=== PATIENT | male | born 1950 | race Caucasian/White ===

== ENCOUNTER 2017-09-24 21:09 | Inpatient (IN) | payer MEDICARE, OTHER ==
[2017-09-24 21:31] LABS: Bicarbonate (HCO3v) 26.7 mmol/L (1.0-85.0); CO2 Tension (PvCO2) 45.3 mmHg (41.0-51.0); Calcium, Ionized 1.15 mmol/L (1.12-1.32); Hemoglobin - Calc 13.9 g/dL (12.0-18.0); Lactate 1.06 mmol/L (0.50-2.20); Potassium 3.9 mmol/L (3.4-4.7); T. Carbon Dioxide 28.1 mmol/L (1.0-85.0); pH (Venous) 7.378 (7.35-7.45); vO2 Saturation-calc 45.8 % (94-98)
[2017-09-24 21:36] LABS: #Eosinphils 0.1 thou/uL (0.0-0.7); #Lymphocytes 3.1 thou/uL (1.20-3.40); #Monocytes 0.7 thou/uL (0.11-0.59); #Neutrophils 4.1 thou/uL (1.40-6.50); %Basophils 0.5 % (0.0-1.0); %Eosinophils 1.6 % (0.0-10.0); %Lymphocytes 38.3 % (21.0-51.0); %Monocytes 8.4 % (0.0-10.0); %Neutrophils 51.2 % (42.0-75.0); Mean Corpuscular HGB CONC 34.4 g/dL (32.0-36.0); Mean Corpuscular Hemoglobin 33.2 pg (27.0-31.0); Mean Corpuscular Volume 96.5 fl (80.0-94.0); Mean Platelet Volume 6.8 fL (7.4-10.4); Platelet Count 147 thou/uL (130-400); RBC Distribution Width 11.6 % (11.5-14.5); Red Blood Cell (RBC) Count 4.23 mill/uL (4.70-6.10); White Blood Cell (WBC) Count 7.9 thou/uL (4.8-10.8)
[2017-09-24] MEDS ORDERED: Atropine Sulfate 1 mg/10 ml Syringe ONE (21:36)
[2017-09-24 21:40] LABS: INR-International Normal Ratio 1.1; PTT 33.3 SEC (22.9-36.1); Prothrombin Time 13.9 SEC (12.0-14.7)
[2017-09-24 21:47] LABS: ALT (SGPT) 13 U/L (8-55); AST (SGOT) 17 U/L (5-34); Albumin 4.1 g/dL (3.4-4.8); Alkaline Phosphatase 104 U/L (40-150); Anion Gap 10 mmol/L (10-20); BUN (Urea Nitrogen) 19 mg/dL (8.4-25.7); Bilirubin, Total 0.8 mg/dL (0.2-1.2); Calc. Creatinine Clearance 0 mL/min (70-130); Calcium 9.4 mg/dL (7.8-10.44); Carbon Dioxide 27 mmol/L (23-31); Chloride 103 mmol/L (98-107); Estimated GFR-MDRD 53; Globulin 3.1 g/dL (2.4-3.5); Glucose 136 mg/dL (80-115); Lipase 28 U/L (8-78); Potassium 3.9 mmol/L (3.5-5.1); Protein, Total 7.2 g/dL (5.8-8.1); Sodium 136 mmol/L (136-145)
[2017-09-24 21:51] LABS: CKMB 1.8 ng/mL (0-6.6); Troponin I 0.265 ng/mL (< 0.028)
[2017-09-24] MEDS ORDERED: Nitroglycerin 100MG/250ML BOT 250 ML ONE (22:05)
--- NOTE | 2017-09-24 22:24 | RAD ---
PORTABLE SEMIUPRIGHT CHEST ONE VIEW: HISTORY: A 67-year-old male with a history of chest pain. FINDINGS: Monitor leads overly the chest. Heart size is within normal limits. Lungs are clear. No confluent pneumonia or overt edema. Stable appearance from 02/08/2011. IMPRESSION: No acute intracranial process. No mass or bleed. POS: [facility]
[2017-09-24] MEDS ORDERED: Fentanyl 250 MCG/5 ML VIAL ONE (23:04)
[2017-09-24] MEDS ORDERED: Heparin 10,000 UNITS/1 ML VIAL ONE (23:04)
[2017-09-25] MEDS ORDERED: Acetaminophen/Codeine 30-300mg Tablet PO PRN (00:01)
[2017-09-25] MEDS ORDERED: Milk Of Magnesia 30 ML UDCUP PO PRN (00:01)
[2017-09-25] MEDS ORDERED: cloNIDine 0.1 MG TAB PO PRN (00:01)
[2017-09-25] MEDS ORDERED: traMADol HCl 50 MG TAB PO PRN (00:01)
[2017-09-25] MEDS ORDERED: Heparin 10,000 UNITS/ 10 ML VIAL ONE (00:15)
[2017-09-25] MEDS ORDERED: TICAGRELOR 90 MG TABLET PO SCH ×3 (00:15→18:00)
[2017-09-25] MEDS: Sodium Chloride 0.9% 1,000 ML IV SCH ×2 (00:44→17:52)
[2017-09-25 00:51] LABS: Troponin I 0.952 ng/mL (< 0.028)
[2017-09-25] MEDS ORDERED: Insulin Regular 300 UNITS/3 ML VIAL SC PRN (01:02)
[2017-09-25] MEDS ORDERED: Dextrose 5% in Water 1,000 ML IV PRN (01:02)
[2017-09-25] MEDS ORDERED: Dextrose 50% Abboject 50 ML SYRINGE IVP PRN (01:02)
[2017-09-25 07:13] LABS: Troponin I 7.274 ng/mL (< 0.028)
--- NOTE | 2017-09-25 07:54 | HP ---
REASON FOR ADMISSION: Acute myocardial infarction, hypotension, bradycardia. HISTORY OF PRESENT ILLNESS: Mr. Cárdenas is a 67-year-old gentleman. He presented to the emergency room complaining of chest pain and the pain was initially in his back and began to radiate anteriorly to the front part of his chest. Now it is going up into his neck. The patient has been having pain off and on for about 3 days, but it intensified and he came to the e mergency room. He was found to be hypotensive with a blood pressure in the 60s systolic and also bra dycardic, heart rate in the 30s. The patient was taken on an emergency basis to cardiac catheterization lab. The patient was having ongoing chest pain at the time of arrival here. MEDICATIONS AT HOME: 1. Lisinopril. 2. Metformin. 3. He took another medicine for diabetes, but he was not sure what it was. REVIEW OF SYSTEMS: Constitutional: No significant weight gain or loss. Vision: No changes. Heari ng: No changes. Pulmonary: No cough or wheezing. Gastrointestinal: No nausea, vomiting, diarrhea . Skin: No rashes. Neurologic: No unilateral weakness or numbness. Psychiatric: No unusual depr ession or anxiety. Hematologic: No unusual bruising. Genitourinary: No burning with urination. FAMILY HISTORY: Negative for heart disease at a young age. PAST MEDICAL HISTORY: 1. Diabetes. 2. Hypertension. TOBACCO: Negative. ALCOHOL: Negative. PHYSICAL EXAMINATION: GENERAL: This is a pleasant gentleman, complaining of some chest pain. VITAL SIGNS: Blood pressure was in the 60s systolic. Pulse was in the low 30s. HEENT: Eyes: Sclerae nonicteric. Mouth: Mucous membranes moist. NECK: Supple, no lymphadenopathy. LUNGS: Clear, no wheezing, rales or rhonchi. CARDIAC: Normal S1, normal S2. There is no murmur, rub or gallop. ABDOMEN: Soft, nontender, no hepatosplenomegaly. EXTREMITIES: Warm and dry. No clubbing or cyanosis. There is no edema. IMAGING: EKG showed severe sinus bradycardia with ST elevation in the inferior leads. ASSESSMENT: 1. Acute inferior myocardial infarction. 2. Severe sinus bradycardia. 3. Severe hypotension. 4. Diabetes. 5. Hypertension. PLAN: 1. Recommend proceeding to cardiac catheterization. Discussed risks of stroke, heart attack, iodine allergy, loss of blood supply to the leg or kidney, stent thrombosis, stent restenosis. He understo od and wished to proceed. 2. We will need to treat diabetes. 3. Check cholesterol levels. The patient was taken on an emergency basis as outlined above after co nsultation quickly with him and his .
--- NOTE | 2017-09-25 10:07 | PRG ---
DATE OF SERVICE: 09/25/2017 SUBJECTIVE: Mr. Cárdenas is doing well today, no chest pain or pressure. PHYSICAL EXAMINATION: VITAL SIGNS: Blood pressure 135/70, pulse 64 regular. LUNGS: Clear. CARDIAC: Normal S1 and S2. ABDOMEN: Soft, nontender. EXTREMITIES: Warm, dry, no clubbing, cyanosis or edema. The peak troponin level was only 7.274. ASSESSMENT: 1. Status post ST elevation infarction with a relatively small rise in troponin. 2. Diabetes. 3. He also has disease in the left anterior descending on the right, but they are not as critical. PLAN: 1. Continue current medical regimen including aspirin, Brilinta, MAYLIN inhibitors, carvedilol and stat ins. 2. Base met tomorrow. 3. Probably go home tomorrow if he is feeling well.
[2017-09-25] MEDS: Lisinopril 2.5 MG TAB PO SCH (14:00)
[2017-09-25] MEDS: Carvedilol 3.125 MG TAB PO SCH ×2 (14:01→21:12)
[2017-09-25] MEDS: Atorvastatin Calcium 40 MG TAB PO SCH (21:12)
--- NOTE | 2017-09-26 04:34 | CON ---
DATE OF CONSULTATION: 09/25/2017 HISTORY OF PRESENT ILLNESS: Mr. Cárdenas is a very pleasant gentleman who was trying to drive to go home with his , last night started having severe chest discomfort. He says he asked his to turnaround taking him to the emergency room. He said that this led to shortly afterwards to profuse diuresis. He was taken emergently to the cardiac catheterization lab. Found to have 3-vessel coronary disease. The right coronary lesion was felt to be the culprit vessel for his chest discomfort. He had percutaneous intervention leading to successful reperfusion. He had 2 stents placed in from what I can tell in his right coronary. The diagonal branch was noted to have 95% lesion in the distal circumflex artery a 60% lesion. He is in the Critical Care Unit, hence the consult. PAST MEDICAL HISTORY: He says he feels great now. PAST MEDICAL HISTORY: Remarkable for hypertension and diabetes. FAMILY HISTORY: Negative for lung disease in early age. SOCIAL HISTORY: Nonsmoker, nondrinker, does not use drugs. ALLERGIES: He reports no drug allergies. REVIEW OF SYSTEMS: Ten-point of review of system is otherwise negative. PHYSICAL EXAMINATION: VITAL SIGNS: He is afebrile, heart rate 72, respiratory rate 16, oximetry 98 on room air, blood pres sure 147/71 this evening. HEENT: His pupils are equal. Sclerae is anicteric. NECK: Supple. LUNGS: Completely clear. HEART: Regular rhythm. S1 and S2 are normal. ABDOMEN: Soft and nontender. EXTREMITIES: No clubbing, cyanosis, or edema. NEUROLOGIC: Nonfocal. LABORATORY DATA: White count 7.9, hemoglobin 14 grams, platelets 147,000. Sodium 140, potassium 3.9 , chloride 103. Creatinine was 1.53 yesterday there is no lab from today. IMPRESSION: Status post emergent percutaneous intervention with successful stenting of his right cor onary after presenting with acute myocardial infarction outcome appears to be good at this time. Lab should be ordered for him in the morning. Check his renal function after catheterization with his elba contreras. We will be happy to follow with the other physicians caring for him, so 50 consult greater than 50% o f the time was spent on the unit coordinating care.
[2017-09-26 05:33] LABS: #Eosinphils 0.1 thou/uL (0.0-0.7); #Lymphocytes 1.7 thou/uL (1.20-3.40); #Monocytes 0.7 thou/uL (0.11-0.59); #Neutrophils 3.3 thou/uL (1.40-6.50); %Basophils 0.4 % (0.0-1.0); %Eosinophils 1.3 % (0.0-10.0); %Lymphocytes 28.8 % (21.0-51.0); %Neutrophils 57.4 % (42.0-75.0); Hemoglobin 13.6 g/dL (14.0-18.0); Mean Corpuscular HGB CONC 34.9 g/dL (32.0-36.0); Mean Corpuscular Hemoglobin 33.6 pg (27.0-31.0); Mean Corpuscular Volume 96.1 fl (80.0-94.0); Mean Platelet Volume 7.1 fL (7.4-10.4); Platelet Count 121 thou/uL (130-400); RBC Distribution Width 11.6 % (11.5-14.5); Red Blood Cell (RBC) Count 4.04 mill/uL (4.70-6.10); White Blood Cell (WBC) Count 5.7 thou/uL (4.8-10.8)
[2017-09-26 05:45] LABS: ALT (SGPT) 20 U/L (8-55); AST (SGOT) 32 U/L (5-34); Albumin 3.6 g/dL (3.4-4.8); Alkaline Phosphatase 91 U/L (40-150); Anion Gap 9 mmol/L (10-20); BUN (Urea Nitrogen) 9 mg/dL (8.4-25.7); Bilirubin, Total 0.9 mg/dL (0.2-1.2); Calc. Creatinine Clearance 94 mL/min (70-130); Calcium 9.5 mg/dL (7.8-10.44); Carbon Dioxide 26 mmol/L (23-31); Chloride 109 mmol/L (98-107); Estimated GFR-MDRD 78; Globulin 2.7 g/dL (2.4-3.5); Glucose 108 mg/dL (80-115); Potassium 3.7 mmol/L (3.5-5.1); Protein, Total 6.3 g/dL (5.8-8.1); Sodium 140 mmol/L (136-145)
[2017-09-26 06:21] VITALS: BMI 32.0
[2017-09-26] MEDS ORDERED: Lisinopril 2.5 MG TAB PO SCH (09:49)
[2017-09-26] MEDS: Carvedilol 3.125 MG TAB PO SCH ×2 (09:52→21:34)
[2017-09-26] MEDS: TICAGRELOR 90 MG TABLET PO SCH ×2 (09:54→21:34)
[2017-09-26] MEDS: Lisinopril 2.5 MG TAB PO SCH (09:57)
--- NOTE | 2017-09-26 10:03 | PRG ---
DATE OF SERVICE: 09/26/2017 HISTORY: Mr. Cárdenas is doing well, no complaints. He is still in the ICU, there has not been any telemetry beds. PHYSICAL EXAMINATION: VITAL SIGNS: Blood pressure 128/67, pulse 70. LUNGS: Clear. CARDIAC: Normal S1 and S2. ABDOMEN: Soft, nontender. EXTREMITIES: No edema. Echocardiogram showed ejection fraction to be 50-55%. The peak troponin was only 7.2. ASSESSMENT: 1. Status post ST elevation infarction. 2. Coronary artery disease, also involving the large diagonal branch. PLAN: 1. We will increase lisinopril. 2. Other medicines unchanged, probably let him go home tomorrow morning. He has not been in the [facility] pital quite 48 hours yet.
--- NOTE | 2017-09-26 16:19 | PRG ---
DATE OF SERVICE: 09/26/2017 SUBJECTIVE: Mr. Cárdenas says he is feeling great. He had no more chest pain. OBJECTIVE: VITAL SIGNS: His oximetry on room air is in the 90s, heart rate 81, blood pressure 135/75. LUNGS: Clear. CARDIOVASCULAR: Regular rhythm. ABDOMEN: Soft. IMPRESSION: ST elevation myocardial infarction, status post percutaneous intervention, clearly doing very well at this time. PLAN: Blood pressure control. Medication adjustment and then hopefully discharge tomorrow per revie w of Dr. Jerome's recommendations. He is clinically stable from a Pulmonary standpoint.
[2017-09-26] MEDS: Atorvastatin Calcium 40 MG TAB PO SCH (21:34)
[2017-09-27] MEDS: Carvedilol 3.125 MG TAB PO SCH (07:48)
[2017-09-27 07:49] VITALS: BP 139/75
[2017-09-27] MEDS: TICAGRELOR 90 MG TABLET PO SCH (07:49)
[2017-09-27] MEDS ORDERED: metFORMIN 500 MG TAB PO SCH (08:00)
[2017-09-27 08:41] VITALS: TEMP 98
[2017-09-27] MEDS ORDERED: Lisinopril 10 MG TAB PO SCH (09:00)
[2017-09-27] MEDS ORDERED: Carvedilol 6.25 MG TAB PO SCH ×2 (09:00)
--- NOTE | 2017-09-27 10:46 | DIS ---
DATE OF ADMISSION: 09/25/2017 DATE OF DISCHARGE: 09/27/2017 FINAL DIAGNOSES 1. Status post inferior myocardial infarction treated with emergency stent implantation. 2. Diabetes. 3. Severe bradycardia and hypotension, resolved. MEDICATIONS AT THE TIME OF DISCHARGE: 1. Aspirin 81 mg a day. 2. Brilinta (ticagrelor) 90 mg twice a day. 3. Carvedilol 12.5 mg twice a day. 4. Lisinopril 10 mg a day. Dose to be increased if needed. 5. Metformin 500 mg twice a day. 6. Rosuvastatin (Crestor) 20 mg at bedtime. 7. The patient is off the Diabeta for now to see how his blood sugar does. Follow up will be in 2 weeks with Corinna Morales NP in my office. HISTORY OF PRESENT ILLNESS: The patient recently presented to the emergency room with chest pain and back pain, brought here by his . The patient was found to have severe sinus bradycardia with heart rate in the low 30s and severe hypotension with blood pressure in the 60s. This is associated with severe ST elevation in the inferior leads. On an emergency basis, he was taken to cardiac catheterization lab. Prior to that, he was given heparin. The patient was found to have the followin. Left main normal. 2. LAD, 50% distal lesion, 95% diagonal branch lesion. 3. Circumflex 60% distal lesion. 4. Right coronary appeared to have 30% proximal lesion and 100% distal occlusion with SRIKANTH grade I flow, essentially occluded with just a trivial amount of a trickle of flow. The obstruction occurred before the posterior descending artery, but there was also critical lesion distal to the posterior descending artery. Two stents were placed, a 3.0 x 20 mm drug-eluting stent which was positioned in the distal lesion and across the posterior descending artery and then a 3.5 x 20 mm drug-eluting stent was placed more proximally and overlapped and these were post-dilated. The proximal lesion appeared to be in the 30% range, did not appear to be obstructive. No left ventriculogram was done at that point. The patient did have an echocardiogram done; however, following that, which showed normal left ventricular ejection fraction. The patient amazingly only had a slight troponin rise of 7.274. The patient has been doing well. He has been pain free since going to the laboratory chemist. OTHER LABORATORIES: Potassium is 3.7, but he is on MAYLIN inhibitors now, expected increase hemoglobin 13.6. There are no lipid levels. The patient will be released to come back and see us in the office in a couple of weeks. If the blood pressure is elevated, we will increase lisinopril. ADDENDUM: I have increased his medicines to lisinopril 10 mg a day, and Coreg 12.5 mg twice a day pending outpatient blood pressures. DA
[2017-09-27] MEDS ORDERED: Rosuvastatin 20 MG TAB PO SCH (21:00)
[2017-09-28] MEDS ORDERED: metFORMIN 500 MG TAB PO SCH (08:00)
[2017-09-28] MEDS ORDERED: Lisinopril 10 MG TAB PO SCH (09:00)
[2017-09-28] MEDS ORDERED: Carvedilol 6.25 MG TAB PO SCH (09:00)
--- NOTE | 2017-09-30 00:26 | EKG ---
Test Reason : Blood Pressure : / mmHG Vent. Rate : 058 BPM Atrial Rate : 058 BPM P-R Int : 246 ms QRS Dur : 106 ms QT Int : 440 ms P-R-T Axes : 041 037 094 degrees QTc Int : 431 ms Sinus bradycardia with 1st degree A-V block Incomplete left bundle branch block ST elevation consider inferior injury or acute infarct ACUTE GA / STEMI Consider right ventricular involvement in acute inferior infarct Abnormal ECG Confirmed by WILLIAM MORLEY ([id number]), editorial writer THOMAS ALMONTE ([id number]) on 09/30/2017 12:25:19 AM Referred By: Confirmed By:WILLIAM MORLEY
--- NOTE | 2017-10-22 11:00 | EKG ---
Test Reason : Blood Pressure : / mmHG Vent. Rate : 089 BPM Atrial Rate : 089 BPM P-R Int : 216 ms QRS Dur : 092 ms QT Int : 384 ms P-R-T Axes : 034 030 061 degrees QTc Int : 467 ms Sinus rhythm with 1st degree A-V block ST elevation consider inferior injury or acute infarct ACUTE [place] / STEMI Consider right ventricular involvement in acute inferior infarct Abnormal ECG No previous ECGs available Confirmed by JOSEPHINE ARAUZ M.D. ([id number] on 10/22/2017 11:00:20 AM Referred By: SAI Confirmed By:JOSEPHINE ARAUZ M.D.
--- NOTE | 2017-10-22 11:03 | EKG ---
Test Reason : PREOP Blood Pressure : / mmHG Vent. Rate : 071 BPM Atrial Rate : 071 BPM P-R Int : 216 ms QRS Dur : 100 ms QT Int : 418 ms P-R-T Axes : 046 009 -10 degrees QTc Int : 454 ms Sinus rhythm with 1st degree A-V block T wave abnormality, consider inferior ischemia Abnormal ECG Confirmed by JOSEPHINE ARAUZ M.D. ([id number]) on 10/22/2017 11:02:58 AM Referred By: SAI Confirmed By:JOSEPHINE ARAUZ M.D.
== END 2017-09-27 10:13 | disposition home or self-care (01) | DRG 247 ==
LOC: ERS 21:09 → CCU 21:37 → SDC/OP 21:52 → CCU 09-25 00:11
PROVIDERS: ADMIT Internal Medicine Cardiovascular Disease; ATTEND Internal Medicine Cardiovascular Disease
PROC: 027035Z Dilation of Coronary Artery, One Artery with Two Drug-eluting Intraluminal Devices, Percutaneous Approach (ICD-10-PCS; principal; 2017-09-25)
PROC: B2111ZZ Fluoroscopy of Multiple Coronary Arteries using Low Osmolar Contrast (ICD-10-PCS; 2017-09-25)
DX: I21.19 ST elevation (STEMI) myocardial infarction involving other coronary artery of inferior wall (principal); I95.9 Hypotension, unspecified; I25.10 Atherosclerotic heart disease of native coronary artery without angina pectoris; R00.1 Bradycardia, unspecified; E11.9 Type 2 diabetes mellitus without complications; I10 Essential (primary) hypertension; Z79.84 Long term (current) use of oral hypoglycemic drugs; Z79.899 Other long term (current) drug therapy
CPT/HCPCS: 36415; 36416; 71045; 76942; 80053; 82330; 82553; 82803; 83605; 83690; 84484; 85025; 85347; 85610; 85730; 86850; 86900; 86901; 92928; 92933; 93005; 93010; 93306; 93454; 93798; 94760; 96374; 96375; C1769; C1874; C1887; C9600; C9602; J0461; J1644; J3010

== ENCOUNTER 2017-11-20 05:32 | Emergency (ER) | payer MEDICARE, OTHER ==
[2017-11-20 05:56] LABS: #Eosinphils 0.1 thou/uL (0.0-0.7); #Lymphocytes 1.3 thou/uL (1.20-3.40); #Monocytes 0.6 thou/uL (0.11-0.59); #Neutrophils 2.8 thou/uL (1.40-6.50); %Basophils 0.1 % (0.0-1.0); %Eosinophils 2.7 % (0.0-10.0); %Lymphocytes 27.7 % (21.0-51.0); %Monocytes 11.8 % (0.0-10.0); %Neutrophils 57.7 % (42.0-75.0); Hemoglobin 14.3 g/dL (14.0-18.0); Mean Corpuscular HGB CONC 33.4 g/dL (32.0-36.0); Mean Corpuscular Hemoglobin 32.2 pg (27.0-31.0); Mean Corpuscular Volume 96.4 fl (80.0-94.0); Mean Platelet Volume 6.9 fL (7.4-10.4); Platelet Count 124 thou/uL (130-400); RBC Distribution Width 11.9 % (11.5-14.5); Red Blood Cell (RBC) Count 4.43 mill/uL (4.70-6.10); White Blood Cell (WBC) Count 4.8 thou/uL (4.8-10.8)
[2017-11-20 06:08] LABS: ALT (SGPT) 17 U/L (8-55); AST (SGOT) 22 U/L (5-34); Albumin 4.3 g/dL (3.4-4.8); Alkaline Phosphatase 128 U/L (40-150); Anion Gap 11 mmol/L (10-20); BUN (Urea Nitrogen) 17 mg/dL (8.4-25.7); Bilirubin, Total 0.9 mg/dL (0.2-1.2); CK (CPK) 146 U/L (30-200); Calc. Creatinine Clearance 0 mL/min (70-130); Carbon Dioxide 29 mmol/L (23-31); Chloride 103 mmol/L (98-107); Estimated GFR-MDRD 62; Globulin 3.1 g/dL (2.4-3.5); Glucose 197 mg/dL (80-115); Potassium 4.8 mmol/L (3.5-5.1); Protein, Total 7.4 g/dL (5.8-8.1); Sodium 138 mmol/L (136-145)
[2017-11-20 06:11] LABS: Troponin I 0.011 ng/mL (< 0.028)
[2017-11-20] MEDS ORDERED: Mag-Al 1200 mg/1200 mg/30 ML UDCUP ONE (06:34)
[2017-11-20] MEDS ORDERED: Lidocaine Viscous Sol 2% 15 ml UD Cup ONE (06:34)
[2017-11-20] MEDS ORDERED: Famotidine 20 MG TAB ONE (07:37)
[2017-11-20] MEDS ORDERED: Methocarbamol 500 MG TAB PO SCH (07:45)
--- NOTE | 2017-11-20 08:06 | RAD ---
CHEST 1 VIEW: Date: 11/20/17 HISTORY: 67-year-old male with history of chest pain. COMPARISON: 09/24/17. FINDINGS: Monitor leads overlie the chest. Heart size is normal. The lungs are clear. IMPRESSION: No acute intrathoracic disease. Stable from prior study. POS: OFF
[2017-11-20 09:00] LABS: CKMB 1.9 ng/mL (0-6.6); Troponin I Less than 0.010 ng/mL (< 0.028)
== END 2017-11-20 09:29 | disposition home or self-care (01) ==
LOC: ERS 05:32
DX: R07.9 Chest pain, unspecified (principal); R10.13 Epigastric pain; K43.9 Ventral hernia without obstruction or gangrene; E11.9 Type 2 diabetes mellitus without complications; K21.9 Gastro-esophageal reflux disease without esophagitis; I10 Essential (primary) hypertension; Z79.84 Long term (current) use of oral hypoglycemic drugs; Z79.02 Long term (current) use of antithrombotics/antiplatelets; Z79.82 Long term (current) use of aspirin; Z79.899 Other long term (current) drug therapy
CPT/HCPCS: 36415; 71045; 80053; 82553; 84484; 85025; 93005

== ENCOUNTER 2018-01-14 07:42 | Outpatient (CLI) | payer MEDICARE, OTHER ==
[2018-01-14 09:25] LABS: Hemoglobin 14.6 g/dL (14.0-18.0); Mean Corpuscular HGB CONC 33.9 g/dL (32.0-36.0); Mean Corpuscular Hemoglobin 33.3 pg (27.0-31.0); Mean Corpuscular Volume 98.1 fL (78.0-98.0); Mean Platelet Volume 7.2 fL (7.4-10.4); Platelet Count 116 thou/uL (130-400); RBC Distribution Width 12.4 % (11.5-14.5); Red Blood Cell (RBC) Count 4.38 mill/uL (4.70-6.10); White Blood Cell (WBC) Count 4.8 thou/uL (4.8-10.8)
[2018-01-14 09:31] LABS: PTT 33.6 SEC (22.9-36.1); Prothrombin Time 13.5 SEC (12.0-14.7)
[2018-01-14 09:39] LABS: ALT (SGPT) 16 U/L (8-55); AST (SGOT) 23 U/L (5-34); Albumin 4.5 g/dL (3.4-4.8); Alkaline Phosphatase 98 U/L (40-150); Anion Gap 11 mmol/L (10-20); BUN (Urea Nitrogen) 13 mg/dL (8.4-25.7); Bilirubin, Total 0.8 mg/dL (0.2-1.2); Calc. Creatinine Clearance 0 mL/min (70-130); Calcium 10.1 mg/dL (7.8-10.44); Carbon Dioxide 28 mmol/L (23-31); Chloride 106 mmol/L (98-107); Cholesterol 121 mg/dl (< 200 Desired); Estimated GFR-MDRD 74; Globulin 3.3 g/dL (2.4-3.5); Glucose 77 mg/dL (80-115); HDL Cholesterol 41 mg/dL (>60 Neg Risk); LDL Cholesterol, Calculated 65 mg/dL; Potassium 4.4 mmol/L (3.5-5.1); Protein, Total 7.8 g/dL (5.8-8.1); Sodium 141 mmol/L (136-145); Triglycerides 77 mg/dL (Less than 150)
== END 2018-01-14 07:43 | disposition home or self-care (01) ==
LOC: LABBT 07:42
PROVIDERS: ATTEND Internal Medicine Cardiovascular Disease
DX: Z01.812 Encounter for preprocedural laboratory examination (principal)
CPT/HCPCS: 80053; 80061; 85027; 85610; 85730

== ENCOUNTER 2018-01-15 05:37 | Day surgery (SDC) | payer MEDICARE, OTHER ==
[2018-01-14 08:39] VITALS: BMI 30.7
[2018-01-15] MEDS ORDERED: Diazepam 5 MG TAB ONE (06:14)
[2018-01-15] MEDS ORDERED: Lidocaine 1% (PF) 30 ML VIAL ONE (06:38)
[2018-01-15] MEDS ORDERED: Midazolam HCl 2 mg/2 ml Vial ONE (07:18)
[2018-01-15] MEDS ORDERED: Fentanyl 100 MCG/2 ML VIAL ONE (07:18)
[2018-01-15] MEDS ORDERED: Nitroglycerin 100MG/250ML BOT 250 ML ONE (07:30)
[2018-01-15] MEDS ORDERED: Heparin 10,000 UNITS/1 ML VIAL ONE ×2 (07:44→08:26)
[2018-01-15] MEDS ORDERED: Iopamidol 370 76% 50 ML VIAL FS ONE (08:40)
[2018-01-15] MEDS ORDERED: Iopamidol 370 76% 100 ML VIAL ONE (08:40)
[2018-01-15] MEDS ORDERED: Bivalirudin 250 MG VIAL ONE (08:45)
[2018-01-15] MEDS ORDERED: Clopidogrel Bisulfate 300 MG TAB ONE (08:59)
[2018-01-15] MEDS ORDERED: cloNIDine 0.1 MG TAB ONE ×2 (12:42→13:07)
[2018-01-15] MEDS ORDERED: Lisinopril 2.5 MG TAB ONE (12:51)
[2018-01-15] MEDS ORDERED: Carvedilol 6.25 MG TAB PO SCH (14:00)
[2018-01-15] MEDS ORDERED: Lisinopril 10 MG TAB PO SCH (14:00)
[2018-01-15] MEDS ORDERED: hydrALAZINE 20 MG/ML VIAL ONE (14:50)
[2018-01-15] MEDS ORDERED: Lisinopril 10 MG TAB ONE (14:51)
--- NOTE | 2018-01-16 04:41 | DIS ---
Mr. Cárdenas underwent percutaneous intervention of the large diagonal branch successfully today. He is to be released home this evening. He was hypertensive today. I did increase the carvedilol to 25 mg twice a day, increase lisinopril to 10 mg twice a day. Contin ue aspirin, continue Plavix, continue statin therapy. We have to see him in the office in a month.
== END 2018-01-15 22:00 | disposition home or self-care (01) ==
LOC: CCL 05:37
PROVIDERS: ATTEND Internal Medicine Cardiovascular Disease
PROC: 4A023N7 Measurement of Cardiac Sampling and Pressure, Left Heart, Percutaneous Approach (ICD-10-PCS; principal; 2018-01-15)
PROC: B2111ZZ Fluoroscopy of Multiple Coronary Arteries using Low Osmolar Contrast (ICD-10-PCS; 2018-01-15)
PROC: 027034Z Dilation of Coronary Artery, One Artery with Drug-eluting Intraluminal Device, Percutaneous Approach (ICD-10-PCS; 2018-01-15)
PROC: 02703ZZ Dilation of Coronary Artery, One Artery, Percutaneous Approach (ICD-10-PCS; 2018-01-15)
DX: I25.10 Atherosclerotic heart disease of native coronary artery without angina pectoris (principal); E78.00 Pure hypercholesterolemia, unspecified; E11.9 Type 2 diabetes mellitus without complications; I25.2 Old myocardial infarction; K21.9 Gastro-esophageal reflux disease without esophagitis; Z79.02 Long term (current) use of antithrombotics/antiplatelets; Z79.82 Long term (current) use of aspirin; Z79.84 Long term (current) use of oral hypoglycemic drugs; Z79.899 Other long term (current) drug therapy; Z95.5 Presence of coronary angioplasty implant and graft
CPT/HCPCS: 76942; 82962; 85347 ×2; 93458; C1769 ×2; C1874; C1887; C9600; 36416; 92928; 99152; 99153; J0360; J0583; J1644; J2001; J2250; J3010

== ENCOUNTER 2018-05-21 19:50 | Emergency (ER) | payer MEDICARE, OTHER ==
[2018-05-21 22:00] LABS: Bilirubin Negative (Negative); Blood, Urine Negative (Negative); Clarity CLEAR (Clear); Glucose, Urine (Dipstick) Negative (Negative); Leukocyte Negative (Negative); Nitrite Negative (Negative); Protein, Urine (Dipstick) Negative (Neg-Trace); Specific Gravity, Urine 1.011 (1.002-1.036)
[2018-05-21 22:32] LABS: #Eosinphils 0.2 thou/uL (0.0-0.7); #Lymphocytes 1.8 thou/uL (1.20-3.40); #Monocytes 0.8 thou/uL (0.11-0.59); #Neutrophils 4.1 thou/uL (1.40-6.50); %Basophils 0.4 % (0.0-1.0); %Eosinophils 2.3 % (0.0-10.0); %Lymphocytes 26.4 % (21.0-51.0); %Neutrophils 59.9 % (42.0-75.0); Mean Corpuscular HGB CONC 34.5 g/dL (32.0-36.0); Mean Corpuscular Hemoglobin 33.7 pg (27.0-31.0); Mean Corpuscular Volume 97.9 fL (78.0-98.0); Mean Platelet Volume 7.3 fL (7.4-10.4); Platelet Count 151 thou/uL (130-400); RBC Distribution Width 11.9 % (11.5-14.5); Red Blood Cell (RBC) Count 4.44 mill/uL (4.70-6.10); White Blood Cell (WBC) Count 6.8 thou/uL (4.8-10.8)
[2018-05-21 22:50] LABS: ALT (SGPT) 14 U/L (8-55); AST (SGOT) 19 U/L (5-34); Albumin 4.3 g/dL (3.4-4.8); Alkaline Phosphatase 123 U/L (40-150); Anion Gap 13 mmol/L (10-20); BUN (Urea Nitrogen) 17 mg/dL (8.4-25.7); Bilirubin, Total 0.7 mg/dL (0.2-1.2); Calc. Creatinine Clearance 0 mL/min (70-130); Carbon Dioxide 26 mmol/L (23-31); Chloride 105 mmol/L (98-107); Estimated GFR-MDRD 65; Globulin 3.5 g/dL (2.4-3.5); Glucose 115 mg/dL (80-115); Lipase 28 U/L (8-78); Protein, Total 7.8 g/dL (5.8-8.1); Sodium 140 mmol/L (136-145)
== END 2018-05-21 23:40 | disposition home or self-care (01) ==
LOC: ERS 19:50
DX: M54.5 Low back pain (principal); E11.9 Type 2 diabetes mellitus without complications; K21.9 Gastro-esophageal reflux disease without esophagitis; I10 Essential (primary) hypertension; Z79.84 Long term (current) use of oral hypoglycemic drugs; Z79.899 Other long term (current) drug therapy; Z79.82 Long term (current) use of aspirin
CPT/HCPCS: 36415; 80053; 81003; 83690; 85025; 85652; 93005

== ENCOUNTER 2018-08-15 09:24 | Outpatient (CLI) | payer MEDICARE, OTHER | END 2018-08-15 09:25 | disposition home or self-care (01) | LOC: CTENTCT 09:24 | PROVIDERS: ATTEND Otolaryngology Plastic Surgery within the Head & Neck | DX: J32.9 Chronic sinusitis, unspecified (principal) | CPT/HCPCS: 70486 ==

== ENCOUNTER 2019-09-10 09:36 | Day surgery (SDC) | payer MEDICARE, OTHER ==
[2019-09-09 08:51] VITALS: BMI 30.4
[2019-09-10] MEDS ORDERED: Rocuronium Bromide 10 MG/ML (10ML VIAL) ONE (10:04)
[2019-09-10] MEDS ORDERED: Dexamethasone 20 MG/5 ML VIAL ONE (10:04)
[2019-09-10] MEDS ORDERED: Succinylcholine Chloride 20 MG/ML 10 ml SYRINGE FS ONE (10:04)
[2019-09-10] MEDS ORDERED: Ondansetron PF 4 MG/2 ML Vial ONE (10:04)
[2019-09-10] MEDS ORDERED: EPHEDRINE 25 MG/5 ML SYRINGE ONE (10:04)
[2019-09-10] MEDS ORDERED: Lidocaine 1% PF 5 ML VIAL ONE (10:04)
[2019-09-10] MEDS ORDERED: PROPOFOL 200 MG/20 ML VIAL ONE (10:04)
[2019-09-10] MEDS ORDERED: AFRIN NASAL MIST 15 ML BOT ONE ×2 (10:12→11:10)
[2019-09-10 10:49] LABS: Hemoglobin 14.7 g/dL (14.0-18.0); Platelet Count 153 thou/uL (130-400)
[2019-09-10 10:52] LABS: Anion Gap 13 mmol/L (10-20); BUN (Urea Nitrogen) 13 mg/dL (8.4-25.7); Calc. Creatinine Clearance 73 mL/min (70-130); Calcium 9.8 mg/dL (7.8-10.44); Carbon Dioxide 25 mmol/L (23-31); Chloride 104 mmol/L (98-107); Estimated GFR-MDRD 66; Glucose 139 mg/dL (80-115); Potassium 4.8 mmol/L (3.5-5.1); Sodium 137 mmol/L (136-145)
[2019-09-10] MEDS ORDERED: Lidocaine 1% w/Epinephrine 1:100K 20 ML VIAL ONE (11:09)
[2019-09-10] MEDS ORDERED: Bacitracin Zinc Ointment 30 gm TUBE ONE (11:10)
[2019-09-10] MEDS ORDERED: Fentanyl 100 MCG/2 ML VIAL ONE (11:56)
--- NOTE | 2019-09-11 10:08 | OP ---
DATE OF PROCEDURE: 09/10/2019 PREOPERATIVE DIAGNOSES: 1. Chronic rhinosinusitis. 2. Nasal septal deviation. 3. Bilateral inferior turbinate hypertrophy. 4. Bilateral nasal wall defect. 5. Bilateral dynamic valve collapse. 6. Nasal obstruction. POSTOPERATIVE DIAGNOSES: 1. Chronic rhinosinusitis. 2. Nasal septal deviation. 3. Bilateral inferior turbinate hypertrophy. 4. Bilateral nasal wall defect. 5. Bilateral dynamic valve collapse. 6. Nasal obstruction. PROCEDURES PERFORMED: 1. Bilateral endoscopic sinus surgery, total ethmoidectomy with removal of tissue including sphenoidotomies. 2. Bilateral endoscopic sinus surgery, frontal sinusotomies. 3. Bilateral endoscopic sinus surgery, maxillary antrostomies. 4. Nasoseptoplasty. 5. Bilateral inferior turbinate submucosal resection. 6. Bilateral repair of lateral nasal wall defect. ESTIMATED BLOOD LOSS: 20 mL. COMPLICATIONS: None. ANESTHESIA: GETA. PROCEDURE IN DETAIL: Patient was taken to the operating room and placed supine on the table. General endotracheal anesthesia was obtained by the anesthesia staff. Then 1% lidocaine with 1:100,000 epinephrine was injected into the nasal septum as well as the inferior turbinates. The patient was prepped and draped in standard surgical fashion. The Afrin pledgets were then removed. A [place] incision was made on the left nasal septum. Submucoperichondrial dissection was performed bilaterally of the deviated portions of the septum, which included the maxillary crest and the crest deviation, as well as the mid portion of the septum. Cartilage and bony deviation was removed, leaving a generous caudal and dorsal strut. Any straight pieces of cartilage were then placed within the cartilage press, pressed, straightened, and then placed between the mucoperichondrial flaps, which were then closed using a 4-0 gut stitch. The inferior turbinates were then punctured with the submucosal Coblation machine, and 3 separate coblations were delivered to the anterior inferior portion of the inferior turbinates. Following this, the nasal cavity was irrigated. All debris was removed. An orogastric tube was placed. Gastric contents and Valle splints were then placed in the nasal cavity and sutured with a 3-0 silk stitch. Following this, 1% lidocaine with 1:100,000 epinephrine were injected into the middle turbinates and lateral nasal wall bilaterally. Following this, the 0-degree endoscope was used to visualize the middle turbinate and the middle turbinate was medially fractured using a Asher elevator. Following this, the uncinate process was identified and was examined. The uncinate process was noted to be inflamed and laterally displaced bilaterally. Following this, a ball-ended probe was used to anteriorly fracture the uncinate process bilaterally. Following this, the 0-degree microdebrider and the up-biting Blakesley forceps were used to remove the uncinate process bilaterally. Following this, the natural maxillary sinus ostia was identified with the 0-degree endoscope and the ball-ended probe. The natural maxillary ostia were then widened using a 40-degree microdebrider and the straight Blakesley forceps bilaterally. Following this, the ethmoidal bulla was identified bilaterally. A 0-degree microdebrider was used to puncture the ethmoidal bulla on its medial and inferior aspect bilaterally. Following this, the 0-degree microdebrider and the up-biting Blakesley forceps were used to remove the ethmoidal bulla. Following this, the grand lamella was identified posterior to this area and was punctured using the 0-degree microdebrider bilaterally. Following this, the ethmoidal cells were opened from the posterior to the anterior using the 0-degree microdebrider, the 40-degree microdebrider and the up-biting Blakesley forceps bilaterally. Following this, the 45-degree endoscope and the 40-degree microdebrider blade were used to further remove the anterior ethmoidal cells to the level of the frontal sinus recess bilaterally. Following this, the 0-degree endoscope was advanced through the previous ethmoidectomies, where the 0-degree microdebrider and straight Blakesley forceps were used to remove more necrotic bone and infected mucosa. The anterior sphenoid sinus wall was identified and was punctured into the sphenoid sinuses with the microdebrider bilaterally. Following this, the sphenoidotomies were widened in a medial and inferior direction using the microdebrider bilaterally. Following this, the 45-degree endoscope along with the 40-degree microdebrider blade were used to further open the frontal sinus recess and expose the frontal sinus ostia bilaterally. Following this, the frontal sinus ostia were widened using a 40-degree microdebrider blade and the up-biting Blakesley forceps bilaterally. Following this, a small incision was made into the nasal cavity for transcartilaginous approach to the lateral nasal wall. A small amount of periosteum was elevated lateral to the nasal bones and an implant graft was placed overlying the nasal bones and extending to support the lower lateral cartilages. Following this, this incision was closed using a 6-0 chromic gut stitch. Nasal cavity was then irrigated. NasoPore packing was placed within the middle meatus. Valle splints were placed and secured. The patient tolerated the procedure well. Job ID: [id number]
== END 2019-09-10 16:16 | disposition home or self-care (01) ==
LOC: SDC 09:36
PROVIDERS: ATTEND Otolaryngology Plastic Surgery within the Head & Neck
PROC: 09TL0ZZ Resection of Nasal Turbinate, Open Approach (ICD-10-PCS; principal; 2019-09-10)
PROC: 09SM0ZZ Reposition Nasal Septum, Open Approach (ICD-10-PCS; 2019-09-10)
PROC: 099T8ZZ Drainage of Left Frontal Sinus, Via Natural or Artificial Opening Endoscopic (ICD-10-PCS; 2019-09-10)
PROC: 099W8ZZ Drainage of Right Sphenoid Sinus, Via Natural or Artificial Opening Endoscopic (ICD-10-PCS; 2019-09-10)
PROC: 099X8ZZ Drainage of Left Sphenoid Sinus, Via Natural or Artificial Opening Endoscopic (ICD-10-PCS; 2019-09-10)
PROC: 099Q8ZZ Drainage of Right Maxillary Sinus, Via Natural or Artificial Opening Endoscopic (ICD-10-PCS; 2019-09-10)
PROC: 099R8ZZ Drainage of Left Maxillary Sinus, Via Natural or Artificial Opening Endoscopic (ICD-10-PCS; 2019-09-10)
PROC: 099S8ZZ Drainage of Right Frontal Sinus, Via Natural or Artificial Opening Endoscopic (ICD-10-PCS; 2019-09-10)
PROC: 09TV8ZZ Resection of Left Ethmoid Sinus, Via Natural or Artificial Opening Endoscopic (ICD-10-PCS; 2019-09-10)
PROC: 09TU8ZZ Resection of Right Ethmoid Sinus, Via Natural or Artificial Opening Endoscopic (ICD-10-PCS; 2019-09-10)
PROC: 09QK0ZZ Repair Nasal Mucosa and Soft Tissue, Open Approach (ICD-10-PCS; 2019-09-10)
DX: J32.4 Chronic pansinusitis (principal); J34.2 Deviated nasal septum; J34.3 Hypertrophy of nasal turbinates; J34.89 Other specified disorders of nose and nasal sinuses; E11.9 Type 2 diabetes mellitus without complications; I10 Essential (primary) hypertension; Z79.82 Long term (current) use of aspirin; Z79.84 Long term (current) use of oral hypoglycemic drugs; Z79.899 Other long term (current) drug therapy
CPT/HCPCS: 36415; 80048; 85014; 85018; 85049; C2625; J1100; J2001; J2405; J2704; J3010

== ENCOUNTER 2021-03-01 03:29 | Emergency (ER) | payer MEDICARE, OTHER ==
[2021-03-01 04:08] LABS: Bilirubin Negative (Negative); Blood, Urine Negative (Negative); Clarity Clear (Clear); Glucose, Urine (Dipstick) Normal (Negative); Ketone, Urine Negative (Negative); Leukocyte Negative Leu/uL (Negative); Nitrite Negative (Negative); Protein, Urine (Dipstick) Negative (Neg-Trace); Specific Gravity, Urine 1.004 (1.002-1.036); Urobilinogen Normal mg/dL (Less than 2)
[2021-03-01 04:39] LABS: #Eosinphils 0.1 thou/uL (0.0-0.7); #Lymphocytes 1.1 thou/uL (1.20-3.40); #Monocytes 0.6 thou/uL (0.11-0.59); #Neutrophils 3.7 thou/uL (1.40-6.50); %Basophils 0.4 % (0.0-1.0); %Eosinophils 1.2 % (0.0-10.0); %Lymphocytes 20.2 % (21.0-51.0); %Monocytes 11.3 % (0.0-10.0); %Neutrophils 66.9 % (42.0-75.0); Mean Corpuscular HGB CONC 35.5 g/dL (32.0-36.0); Mean Corpuscular Hemoglobin 35.7 pg (27.0-31.0); Platelet Count 140 thou/uL (130-400); Red Blood Cell (RBC) Count 3.91 mill/uL (4.70-6.10); White Blood Cell (WBC) Count 5.5 thou/uL (4.8-10.8)
[2021-03-01 05:05] LABS: ALT (SGPT) 17 U/L (8-55); AST (SGOT) 21 U/L (5-34); Albumin 3.9 g/dL (3.4-4.8); Alkaline Phosphatase 93 U/L (40-110); Anion Gap 11 mmol/L (10-20); BUN (Urea Nitrogen) 11 mg/dL (8.4-25.7); Bilirubin, Total 0.6 mg/dL (0.2-1.2); Calc. Creatinine Clearance 0 mL/min (70-130); Calcium 9.4 mg/dL (7.8-10.44); Carbon Dioxide 23 mmol/L (23-31); Chloride 111 mmol/L (98-107); Globulin 3.1 g/dL (2.4-3.5); Glucose 95 mg/dL (80-115); Potassium 4.1 mmol/L (3.5-5.1); Sodium 141 mmol/L (136-145)
== END 2021-03-01 06:20 | disposition home or self-care (01) ==
LOC: ERS 03:29
DX: E11.649 Type 2 diabetes mellitus with hypoglycemia without coma (principal); Z79.899 Other long term (current) drug therapy; Z79.84 Long term (current) use of oral hypoglycemic drugs; Z79.82 Long term (current) use of aspirin; K21.9 Gastro-esophageal reflux disease without esophagitis; I10 Essential (primary) hypertension; I25.2 Old myocardial infarction
CPT/HCPCS: 36415; 36416; 80053; 81003; 85025; 99285

== ENCOUNTER 2022-03-04 08:08 | Emergency (ER) | payer MEDICARE, OTHER ==
[2022-03-04 08:42] LABS: #Eosinphils 0.1 thou/uL (0.0-0.7); #Monocytes 0.6 thou/uL (0.11-0.59); #Neutrophils 4.7 thou/uL (1.40-6.50); %Basophils 0.3 % (0.0-1.0); %Lymphocytes 16.3 % (21.0-51.0); %Monocytes 9.1 % (0.0-10.0); %Neutrophils 73.3 % (42.0-75.0); Hemoglobin 14.3 g/dL (14.0-18.0); Mean Corpuscular HGB CONC 33.8 g/dL (32.0-36.0); Mean Corpuscular Hemoglobin 34.4 pg (27.0-31.0); Mean Platelet Volume 7.6 fL (7.4-10.4); Platelet Count 126 thou/uL (130-400); RBC Distribution Width 11.6 % (11.5-14.5); Red Blood Cell (RBC) Count 4.16 mill/uL (4.70-6.10); White Blood Cell (WBC) Count 6.4 thou/uL (4.8-10.8)
[2022-03-04 09:04] LABS: ALT (SGPT) 26 U/L (8-55); AST (SGOT) 26 U/L (5-34); Alkaline Phosphatase 120 U/L (40-110); Anion Gap 14 mmol/L (10-20); BUN (Urea Nitrogen) 14 mg/dL (8.4-25.7); Calc. Creatinine Clearance 0 mL/min (70-130); Calcium 9.4 mg/dL (7.8-10.44); Carbon Dioxide 24 mmol/L (23-31); Chloride 104 mmol/L (98-107); Estimated GFR 62; Globulin 3.1 g/dL (2.4-3.5); Glucose 252 mg/dL (83-110); Potassium 4.9 mmol/L (3.5-5.1); Protein, Total 7.1 g/dL (5.8-8.1); Sodium 137 mmol/L (136-145)
[2022-03-04] MEDS ORDERED: Senokot 8.6 MG TAB PO SCH (09:45)
[2022-03-04] MEDS ORDERED: Docusate 100 MG CAP PO SCH (09:45)
== END 2022-03-04 10:25 | disposition home or self-care (01) ==
LOC: ERS 08:08
DX: K59.00 Constipation, unspecified (principal); E11.9 Type 2 diabetes mellitus without complications; I48.91 Unspecified atrial fibrillation; K21.9 Gastro-esophageal reflux disease without esophagitis; I10 Essential (primary) hypertension; I25.2 Old myocardial infarction; Z79.84 Long term (current) use of oral hypoglycemic drugs; Z79.82 Long term (current) use of aspirin; Z79.899 Other long term (current) drug therapy; Z79.01 Long term (current) use of anticoagulants
CPT/HCPCS: 71045; 80053; 84484; 85025; 93005; 94760

== ENCOUNTER 2022-04-01 09:46 | Emergency (ER) | payer MEDICARE, OTHER ==
[2022-04-01 10:32] LABS: #Eosinphils 0.1 thou/uL (0.0-0.7); #Lymphocytes 0.8 thou/uL (1.20-3.40); #Monocytes 0.4 thou/uL (0.11-0.59); #Neutrophils 3.6 thou/uL (1.40-6.50); %Basophils 0.5 % (0.0-1.0); %Eosinophils 1.2 % (0.0-10.0); %Lymphocytes 16.7 % (21.0-51.0); %Monocytes 7.8 % (0.0-10.0); %Neutrophils 73.9 % (42.0-75.0); Hemoglobin 13.5 g/dL (14.0-18.0); Mean Corpuscular HGB CONC 32.7 g/dL (32.0-36.0); Mean Corpuscular Hemoglobin 33.5 pg (27.0-31.0); Mean Platelet Volume 8.8 fL (7.4-10.4); Platelet Count 94 thou/uL (130-400); RBC Distribution Width 11.6 % (11.5-14.5); Red Blood Cell (RBC) Count 4.02 mill/uL (4.70-6.10); White Blood Cell (WBC) Count 4.8 thou/uL (4.8-10.8)
[2022-04-01 11:07] LABS: ALT (SGPT) 20 U/L (8-55); AST (SGOT) 27 U/L (5-34); Albumin 3.8 g/dL (3.4-4.8); Alkaline Phosphatase 111 U/L (40-110); Anion Gap 14 mmol/L (10-20); BUN (Urea Nitrogen) 14 mg/dL (8.4-25.7); CK (CPK) 146 U/L (30-200); Calc. Creatinine Clearance 0 mL/min (70-130); Calcium 9.3 mg/dL (7.8-10.44); Carbon Dioxide 25 mmol/L (23-31); Chloride 102 mmol/L (98-107); Estimated GFR 48; Globulin 2.9 g/dL (2.4-3.5); Glucose 278 mg/dL (83-110); Potassium 5.2 mmol/L (3.5-5.1); Protein, Total 6.7 g/dL (5.8-8.1); Sodium 136 mmol/L (136-145)
[2022-04-01 15:02] LABS: ALT (SGPT) 18 U/L (8-55); AST (SGOT) 23 U/L (5-34); Albumin 3.5 g/dL (3.4-4.8); Alkaline Phosphatase 110 U/L (40-110); Anion Gap 13 mmol/L (10-20); BUN (Urea Nitrogen) 14 mg/dL (8.4-25.7); Bilirubin, Total 0.9 mg/dL (0.2-1.2); Calc. Creatinine Clearance 0 mL/min (70-130); Calcium 8.8 mg/dL (7.8-10.44); Carbon Dioxide 19 mmol/L (23-31); Chloride 104 mmol/L (98-107); Estimated GFR 52; Glucose 272 mg/dL (83-110); Potassium 4.3 mmol/L (3.5-5.1); Protein, Total 6.5 g/dL (5.8-8.1); Sodium 132 mmol/L (136-145)
== END 2022-04-01 15:39 | disposition home or self-care (01) ==
LOC: ERS 09:46
DX: R55 Syncope and collapse (principal); N17.9 Acute kidney failure, unspecified; I48.91 Unspecified atrial fibrillation; E11.9 Type 2 diabetes mellitus without complications; I10 Essential (primary) hypertension; I25.2 Old myocardial infarction; Z79.01 Long term (current) use of anticoagulants; Z79.82 Long term (current) use of aspirin; Z79.84 Long term (current) use of oral hypoglycemic drugs; Z79.899 Other long term (current) drug therapy
CPT/HCPCS: 36415; 71045; 80053; 82550; 84484; 85025; 93005; 96360

== ENCOUNTER 2022-05-02 02:46 | Emergency (ER) | payer MEDICARE, OTHER ==
[2022-05-02] MEDS ORDERED: Tranexamic Acid 1,000 MG/10 ML VIAL ONE (03:18)
[2022-05-02] MEDS ORDERED: Oxymetazoline HCl 0.05% (30 ML BOT) ONE (03:18)
[2022-05-02] MEDS ORDERED: Silver Nitrate Application 1 EACH ONE (03:19)
== END 2022-05-02 03:42 | disposition home or self-care (01) ==
LOC: ERS 02:46
DX: R04.0 Epistaxis (principal); K21.9 Gastro-esophageal reflux disease without esophagitis; E11.9 Type 2 diabetes mellitus without complications; I10 Essential (primary) hypertension; Z79.82 Long term (current) use of aspirin; Z79.84 Long term (current) use of oral hypoglycemic drugs; Z79.899 Other long term (current) drug therapy
CPT/HCPCS: 30903